=== PATIENT | female | born 1975 ===

== ENCOUNTER 2017-11-18 08:04 | Outpatient (CLI) | payer OTHER | END 2017-11-18 08:08 | disposition home or self-care (01) | LOC: SONOGRAMA 08:04 | DX: E04.2 Nontoxic multinodular goiter (principal) ==

== ENCOUNTER → 2018-03-03 11:37 | Outpatient (CLI) | payer OTHER | END | disposition home or self-care (01) | LOC: SONOGRAMA 11:37 | DX: E04.1 Nontoxic single thyroid nodule (principal) ==